=== PATIENT | female | born 2000 | race African-American/Black ===

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

== ENCOUNTER 2019-01-08 21:04 | Emergency (ER) | payer SELFPAY ==
[~2019-01-08] VITALS: Ht 175.3 cm; Wt 68.0 kg
[2019-01-08 21:28] VITALS: BP 139/101
[2019-01-08] MEDS ORDERED: DEXAMETHASONE 4 MG TABLET PO ONE (21:45)
[2019-01-08] MEDS ORDERED: ONDA4TAB12 PO (23:23)
[2019-01-08] MEDS ORDERED: BUTA1TAB23 PO (23:23)
--- NOTE | 2019-01-08 23:23 | PHYS DOC ---
Past Medical History Past Medical History: Asthma Additional Past Medical Histor: Headache Past Surgical History: Other Additional Past Surgical Histo: right ankle Alcohol Use: Occasionally Drug Use: None Adult General Chief Complaint Chief Complaint: HEADACHE HPI HPI Patient is a 18 year old [f__sex] who presents with [] Review of Systems Review of Systems Constitutional: Denies fever or chills [] Eyes: Denies change in visual acuity, redness, or eye pain [] HENT: Denies nasal congestion or sore throat [] Respiratory: Denies cough or shortness of breath [] Cardiovascular: No additional information not addressed in HPI [] GI: Denies abdominal pain, nausea, vomiting, bloody stools or diarrhea [] : Denies dysuria or hematuria [] Musculoskeletal: Denies back pain or joint pain [] Integument: Denies rash or skin lesions [] Neurologic: Denies headache, focal weakness or sensory changes [] Endocrine: Denies polyuria or polydipsia [] All other systems were reviewed and found to be within normal limits, except as documented in this note. Current Medications Current Medications Current Medications Medications (Trade) Dose Ordered Sig/Sage Start Time Stop Time Status Last Admin Dose Admin Dexamethasone (Decadron) 10 mg 1X ONCE 01/08/19 21:45 01/08/19 21:46 DC 01/08/19 22:20 10 MG Allergies Allergies Allergies Coded Allergies Type Severity Reaction Last Updated Verified No Known Drug Allergies 02/22/14 No Physical Exam Physical Exam Constitutional: Well developed, well nourished, no acute distress, non-toxic appearance. [] HENT: Normocephalic, atraumatic, bilateral external ears normal, oropharynx moist, no oral exudates, nose normal. [] Eyes: PERRLA, EOMI, conjunctiva normal, no discharge. [] Neck: Normal range of motion, no tenderness, supple, no stridor. [] Cardiovascular:Heart rate regular rhythm, no murmur [] Lungs & Thorax: Bilateral breath sounds clear to auscultation [] Abdomen: Bowel sounds normal, soft, no tenderness, no masses, no pulsatile masses. [] Skin: Warm, dry, no erythema, no rash. [] Back: No tenderness, no CVA tenderness. [] Extremities: No tenderness, no cyanosis, no clubbing, ROM intact, no edema. [] Neurologic: Alert and oriented X 3, normal motor function, normal sensory function, no focal deficits noted. [] Psychologic: Affect normal, judgement normal, mood normal. [] Current Patient Data Vital Signs Vital Signs Date Time Temp Pulse Resp B/P (MAP) Pulse Ox O2 Delivery O2 Flow Rate FiO2 01/08/19 21:28 98.2 69 14 139/101 (114) 97 Room Air 98.2 Lab Values Laboratory Tests Test 01/08/19 21:51 POC Urine HCG, Qualitative Hcg negative (Negative) EKG EKG [] Radiology/Procedures Radiology/Procedures [] Course & Med Decision Making Course & Med Decision Making Pertinent Labs and Imaging studies reviewed. (See chart for details) [] Dragon Disclaimer Dragon Disclaimer This electronic medical record was generated, in whole or in part, using a voice recognition dictation system. Departure Departure Impression: Primary Impression: Headache Disposition: HOME, SELF-CARE Condition: IMPROVED Referrals: NO PCP (PCP) LYNDON BURGESS MD Patient Instructions: Headache, FAQs Scripts Ondansetron (ONDANSETRON ODT) 4 Mg Tab.rapdis 1 TAB PO PRN Q6-8HRS PRN for NAUSEA, #16 TAB Prov: SHOLA DE LUNA DO 01/08/19 Butalb/Acetaminophen/Caffeine ([id number] [id number]) 1 Each Tablet 1 EACH PO Q6HRS PRN for HEADACHE, #14 TAB Prov: SHOLA DE LUNA DO 01/08/19 Problem Qualifiers Primary Impression: Headache Headache type: unspecified Headache chronicity pattern: acute headache Intractability: intractable Qualified Codes: R51 - Headache SHOLA DE LUNA DO Jan 08, 2019 23:23
== END 2019-01-08 23:32 | disposition home or self-care (01) ==
LOC: ER 21:04
DX: R51 Headache (principal); J45.909 Unspecified asthma, uncomplicated
CPT/HCPCS: 81025; 99283; J8540

== ENCOUNTER 2019-02-21 13:23 | Emergency (ER) | payer SELFPAY ==
[~2019-02-21] VITALS: Ht 175.3 cm; Wt 68.0 kg
[~2019-02-21 13:23] MED LIST: BUTA1TAB23 PO; ONDA4TAB12 PO
[2019-02-21 13:30] VITALS: BP 102/72
[2019-02-21 13:56] LABS: BILIRUBIN,URINE NEGATIVE (NEG); CLARITY,URINE TURBID; COLOR,URINE YELLOW; NITRITE,URINE NEGATIVE (NEG); PROTEIN,URINE NEGATIVE (NEG-TRACE)
[2019-02-21 14:07] LABS: SQUAMOUS EPITHELIAL CELL,UR MOD /LPF
[2019-02-21 14:08] LABS: BACTERIA,URINE 0 /HPF (0-FEW); RBC,URINE 0 /HPF (0-2); WBC,URINE OCC /HPF (0-4)
[2019-02-21] MEDS ORDERED: ACETAMINOPHEN 325 MG TABLET. PO PRN (14:30)
[2019-02-21] MEDS ORDERED: ONDANSETRON PF 4 MG/2 ML VIAL. IV PRN (14:30)
[2019-02-21] MEDS ORDERED: MORPHINE SULFATE 2 MG/ML VIAL. IV PRN (14:30)
--- NOTE | 2019-02-21 15:16 | RAD ---
Examination: Ultrasound pelvis HISTORY: History of pelvic pain. COMPARISON: None available Findings/ impression: Patient declined transvaginal ultrasound examination. On the transabdominal examination, uterus and the ovaries could not be visualized as the examination is limited due to bowel gas. Electronically signed by: Tan Camilo MD (02/21/2019 3:13 PM) [id number]
[2019-02-21] MEDS ORDERED: MAGN296S9 PO (15:46)
[2019-02-21] MEDS ORDERED: SIME125C PO (15:46)
--- NOTE | 2019-02-21 15:47 | PHYS DOC ---
Past Medical History Past Medical History: No Pertinent History, Asthma Additional Past Medical Histor: Headache Past Surgical History: Other Additional Past Surgical Histo: right ankle Alcohol Use: Occasionally Drug Use: None Adult General Chief Complaint Chief Complaint: PAIN ON URINATION [facility] HPI Patient is a 18 year old female who presents to the ED today complaining 1/10 intermittent bilateral pelvic pain that has been going on for 3 weeks. Patient denies anything exacerbating or relieving the pain. She states she thinks she has a UTI. Patient denies any urgency, frequency, dysuria. Denies any chance she is . Denies any unusual vaginal discharge, denies any concerns for STDs. Review of Systems Review of Systems Constitutional: Denies fever or chills [] Eyes: Denies change in visual acuity, redness, or eye pain [] HENT: Denies nasal congestion or sore throat [] Respiratory: Denies cough or shortness of breath [] Cardiovascular: No additional information not addressed in HPI [] GI: Reports pelvic pain, denies nausea, vomiting, bloody stools or diarrhea [] : Denies dysuria or hematuria [] Musculoskeletal: Denies back pain or joint pain [] Integument: Denies rash or skin lesions [] Neurologic: Denies headache, focal weakness or sensory changes [] All other systems were reviewed and found to be within normal limits, except as documented in this note. Current Medications Current Medications Current Medications Medications (Trade) Dose Ordered Sig/[facility] Start Time Stop Time Status Last Admin Dose Admin Acetaminophen (Tylenol) 650 mg PRN Q4HRS PRN 02/21/19 14:30 02/22/19 14:29 UNV Morphine Sulfate (Morphine Sulfate) 2 mg PRN Q2HR PRN 02/21/19 14:30 02/22/19 14:29 UNV Ondansetron HCl (Zofran) 4 mg PRN Q8HRS PRN 02/21/19 14:30 02/22/19 14:29 UNV Allergies Allergies Allergies Coded Allergies Type Severity Reaction Last Updated Verified No Known Drug Allergies 02/22/14 No Physical Exam Physical Exam Constitutional: Well developed, well nourished, no acute distress, non-toxic appearance. [] HENT: Normocephalic, atraumatic, bilateral external ears normal, oropharynx mo ist, no oral exudates, nose normal. [] Eyes: PERRLA, EOMI, conjunctiva normal, no discharge. [] Neck: Normal range of motion, no tenderness, supple, no stridor. [] Cardiovascular:Heart rate regular rhythm, no murmur [] Lungs & Thorax: Bilateral breath sounds clear to auscultation [] Abdomen: Bowel sounds normal, soft, no tenderness, no masses, no pulsatile masses. [] Pelvic exam-patient refused Skin: Warm, dry, no erythema, no rash. [] Back: No tenderness, no CVA tenderness. [] Extremities: No tenderness, no cyanosis, no clubbing, ROM intact, no edema. [] Neurologic: Alert and oriented X 3, normal motor function, normal sensory function, no focal deficits noted. [] Psychologic: Affect normal, judgement normal, mood normal. [] Current Patient Data Vital Signs Vital Signs Date Time Temp Pulse Resp B/P (MAP) Pulse Ox O2 Delivery O2 Flow Rate FiO2 02/21/19 13:30 98.4 98 16 102/72 (82) 99 Room Air 98.4 Lab Values Laboratory Tests Test 02/21/19 13:28 02/21/19 13:51 Urine Collection Type Unknown Urine Color Yellow Urine Clarity Turbid Urine pH 6.0 Urine Specific [place] 1.025 Urine Protein Negative mg/dL (NEG-TRACE) Urine Glucose (UA) Negative mg/dL (NEG) Urine Ketones (Stick) Trace mg/dL (NEG) Urine Blood Negative (NEG) Urine Nitrite Negative (NEG) Urine Bilirubin Negative (NEG) Urine Urobilinogen Dipstick 1.0 mg/dL (0.2 mg/dL) Urine Leukocyte Esterase Negative (NEG) Urine RBC 0 /HPF (0-2) Urine WBC Occ /HPF (0-4) Urine Squamous Epithelial Cells Mod /LPF Urine Bacteria 0 /HPF (0-FEW) Urine Mucus Marked /LPF POC Urine HCG, Qualitative Hcg negative (Negative) EKG EKG [] Radiology/Procedures Radiology/Procedures []PROCEDURE: PELVIS COMPLETE Examination: Ultrasound pelvis HISTORY: History of pelvic pain. COMPARISON: None available Findings/ impression: Patient declined transvaginal ultrasound examination. On the transabdominal examination, uterus and the ovaries could not be visualized as the examination is limited due to bowel gas. Electronically signed by: Tan Camilo MD (02/21/2019 3:13 PM) [id number] DICTATED and SIGNED BY: TAN CAMILO MD DATE: 02/21/19 1513 Course & Med Decision Making Course & Med Decision Making Pertinent Labs and Imaging studies reviewed. (See chart for details) This is a 18-year-old female patient who presents to the ED today complaining of pelvic pain for 3 weeks. She is concerned she has a UTI. Urine analysis is negative for infection. Pelvic ultrasound limited because patient refused transvaginal ultrasound. Noted for gas in the abdomen. Patient was discharged to home. Gas-X recommended. Follow-up with PCP and COURT ASSISTANT in 1-2 weeks Dragon Disclaimer Dragon Disclaimer This electronic medical record was generated, in whole or in part, using a voice recognition dictation system. Departure Departure Impression: Primary Impression: Pelvic pain Disposition: HOME, SELF-CARE Condition: STABLE Referrals: NO PCP (PCP) ROMY MOORE MD follow up in 1 week Patient Instructions: Pelvic Pain, Female, [id number] Additional Instructions: You were evaluated in the emergency room for pelvic pain. Your urine has no infection, you were noted to have gas in your abdomen, there is a chance you are constipated. Please take over the counter bowel prep like Magnesium Citrate and Gas X. Follow up with your doctor in 1 week Scripts Simethicone (GAS-X) 125 Mg Capsule 125 MG PO BID PRN for GAS / BLOATING, #14 CAP Prov: JAIR PEACOCK APRN 02/21/19 Magnesium Citrate (MAGNESIUM CITRATE) 296 Ml Solution 296 ML PO ONCE, #296 ML Prov: JAIR PEACOCK APRN 02/21/19 JAIR PEACOCK APRN Feb 21, 2019 15:47
== END 2019-02-21 16:00 | disposition home or self-care (01) ==
LOC: ER 13:23
DX: R10.2 Pelvic and perineal pain (principal); J45.909 Unspecified asthma, uncomplicated
CPT/HCPCS: 76856; 81001; 81025; 99285-25